=== PATIENT | male | born 2000 | race Caucasian/White ===

== ENCOUNTER 2022-01-23 09:32 | Emergency (ER) | payer BC, MEDICAID ==
[~2022-01-23] VITALS: Ht 167.6 cm; Wt 70.3 kg
[2022-01-23 09:35] VITALS: BP 114/73
--- NOTE | 2022-01-23 09:44 | NUR ---
[facility] ALS TO ER BED 10
[2022-01-23] MEDS ORDERED: NACL 0.9% 1,000 ML IV ONE (10:55)
--- NOTE | 2022-01-23 11:33 | NUR ---
yasmeen dean (mother) update given at this time,
[2022-01-23 12:48] LABS: BASOPHILS # (AUTO) 0.1 K/uL (0.00-0.22); BASOPHILS % (AUTO) 0.7 % (0.0-2.0); EOSINOPHILS # (AUTO) 0.1 K/uL (0-0.4); EOSINOPHILS % (AUTO) 0.3 % (0.0-4.0); HEMATOCRIT 37.2 % (36-52); HEMOGLOBIN 12.2 g/dL (12.0-18.0); LYMPHOCYTES % (AUTO) 10.3 % (20.5-51.1); MEAN CORPUSCULAR HEMOGLOBIN 30 pg (27-31); MEAN CORPUSCULAR HGB CONC 33 g/dL (33-37); MEAN CORPUSCULAR VOLUME 92.3 fL (80-94); MONOCYTES # (AUTO) 2.8 K/uL (0.8-1.0); MONOCYTES % (AUTO) 14.5 % (1.7-9.3); NEUTROPHILS # (AUTO) 14.2 K/uL (1.8-7.7); NEUTROPHILS % (AUTO) 74.2 % (42.2-75.2); PLATELET COUNT (AUTO) 311 K/uL (140-450); RED BLOOD CELL COUNT(AUTO) 4.03 MIL/uL (4.20-6.10); RED CELL DISTRIBUTION WIDTH 13.3 % (11.6-13.7); WHITE BLOOD COUNT (AUTO) 19.1 K/uL (4.8-10.8)
[2022-01-23 13:14] LABS: ALBUMIN 3.6 g/dL (3.4-5.0); ANION GAP 8.3 (8-16); ASPARTATE AMINOTRANSFERASE 25 U/L (15-37); CARBON DIOXIDE 30.7 mmol/L (21-32); CHLORIDE 99 mmol/L (98-107); CREATININE 1.1 mg/dL (0.6-1.3); GFR ARICAN-AMERICAN 107 mL/min (>90); GLUCOSE 78 mg/dL (74-106); SODIUM SERUM 134 mmol/L (136-145); TOTAL BILIRUBIN 0.4 mg/dL (0.0-1.0); UREA NITROGEN, BLOOD 17 mg/dL (7-18); VALPROIC ACID 90 ug/ml (50-100)
[2022-01-23] MEDS ORDERED: VANCOMYCIN 1,000 MG in DEXTROSE 5% 250 ML IV ONE (14:55)
[2022-01-23] MEDS ORDERED: PIPERACILLIN/TAZOBACTAM 3.375 GM in DEXTROSE 5% 50 ML IV ONE (14:55)
[2022-01-23] MEDS ORDERED: PIPERACILLIN/TAZOBACTAM 3.375 GM VIAL IV ONE (15:08)
[2022-01-23 15:18] LABS: PROTHROMBIN TIME 11.1 secs (10.8-13.4)
--- NOTE | 2022-01-23 15:20 | NUR ---
S/W Ingrid from [place], after clinicals were given, she stated that they would work on transferring pt. Requested for clinicals to be faxed to [phone].
[2022-01-23 15:25] LABS: FREE T4 (FREE THYROXINE) 1.05 ng/dL (0.76-1.46); THYROID STIMULATING HORMONE 3.26 uIU/mL (0.34-3.74)
[2022-01-23 15:34] LABS: APPEARANCE,URINE CLEAR (CLEAR); BILIRUBIN,URINE 2+ (NEGATIVE); BLOOD, URINE NEGATIVE (NEGATIVE); COLOR,URINE YELLOW (YELLOW); LEUKOCYTE ESTERASE ,URINE NEGATIVE (NEGATIVE); NITRITE, URINE NEGATIVE (NEGATIVE); UGLUCOSE NEGATIVE (NEGATIVE)
[2022-01-23] MEDS ORDERED: VANCOMYCIN 1,000 MG VIAL ONE (15:39)
[2022-01-23 15:57] LABS: BARBITURATE, URINE NEGATIVE ng/ml (NEG <=200); BENZODIAZEPINE, URINE NEGATIVE ng/mL (NEG <=200); CANNABINOID, URINE NEGATIVE ng/mL (NEG <=50); COCAINE, URINE NEGATIVE ng/mL (NEG <=300); OPIATE, URINE NEGATIVE ng/mL (NEG <=2000); PHENCYCLIDINE SCREEN,URINE NEGATIVE ng/mL (NEG <=25)
[2022-01-23 18:00] VITALS: BP 130/74
--- NOTE | 2022-01-23 18:52 | NUR ---
[facility] AT BEDSIDE FOR REPORT.
--- NOTE | 2022-01-23 19:16 | NUR ---
Patient to be transferred to DR LOO. Is being transferred due to REQUEST OF [facility]. Receiving facility has accepting physician and available space. ER physician has signed transfer form. Patient or responsible republican has agreed to transfer and signed form. Patient belongings inventoried and will be sent with patient. Copy of nursing notes, lab reports, EKG, Physicians Orders and X-rays to be sent with patient. Report called to [facility] at receiving facility. ambulance service has been called for transfer. ETA is .
== END 2022-01-23 19:19 ==
LOC: MED 09:32
DX: S09.90XA Unspecified injury of head, initial encounter (principal); Z20.822 Contact with and (suspected) exposure to COVID-19; F31.9 Bipolar disorder, unspecified; R40.0 Somnolence; F84.0 Autistic disorder; F25.9 Schizoaffective disorder, unspecified; X58.XXXA Exposure to other specified factors, initial encounter; Y93.89 Activity, other specified; Y92.89 Other specified places as the place of occurrence of the external cause; Y99.8 Other external cause status
CPT/HCPCS: 36415; 70450; 71045; 80053; 80178; 80305; 81003; 82140; 82550; 83605; 84439; 84443; 84484; 85025; 85610; 85730; 87040; 87426; 87804; 93005; 96361; 96365; 96366; 96367; 99285; J2543; J3370; J7030

== ENCOUNTER 2022-10-17 08:49 | Emergency (ER) | payer BC, OTHER ==
[~2022-10-17] VITALS: Ht 172.7 cm; Wt 61.7 kg
[2022-10-17 08:54] VITALS: BP 120/68; PULSE 82; RESP 18; TEMP 98.5; O2SAT 97
[2022-10-17 10:31] VITALS: BP 128/72; PULSE 75; RESP 18; TEMP 98.5; O2SAT 97
== END 2022-10-17 10:50 | disposition home or self-care (01) ==
LOC: MED 08:49
DX: R45.6 Violent behavior (principal); Z13.39 Encounter for screening examination for other mental health and behavioral disorders
CPT/HCPCS: 99283

== ENCOUNTER 2023-02-16 20:08 | Emergency (ER) | payer BC, OTHER ==
[~2023-02-16] VITALS: Ht 165.1 cm; Wt 72.6 kg
[2023-02-16 20:20] VITALS: BP 138/72; PULSE 78; RESP 16; TEMP 98.9; O2SAT 99
[2023-02-16] MEDS ORDERED: IBUPROFEN 400 MG TAB ONE (20:57)
[2023-02-16] MEDS ORDERED: IBUPROFEN 400 MG TAB PO ONE (21:00)
[2023-02-16 21:19] LABS: FLU A ANTIGEN negative (NEGATIVE); FLU B ANTIGEN NEGATIVE (NEGATIVE)
[2023-02-16 22:39] LABS: BASOPHILS # (AUTO) 0.1 K/uL (0.00-0.22); BASOPHILS % (AUTO) 0.4 % (0.0-2.0); EOSINOPHILS # (AUTO) 0.5 K/uL (0-0.4); EOSINOPHILS % (AUTO) 2.6 % (0.0-4.0); HEMATOCRIT 40.5 % (36-52); HEMOGLOBIN 13.4 g/dL (12.0-18.0); LYMPHOCYTES # (AUTO) 2.5 K/uL (2.0-11.5); LYMPHOCYTES % (AUTO) 13.2 % (20.5-51.1); MEAN CORPUSCULAR HEMOGLOBIN 31 pg (27-31); MEAN CORPUSCULAR HGB CONC 33 g/dL (33-37); MEAN CORPUSCULAR VOLUME 92.3 fL (80-94); MONOCYTES # (AUTO) 2.1 K/uL (0.8-1.0); MONOCYTES % (AUTO) 10.8 % (1.7-9.3); NEUTROPHILS # (AUTO) 13.9 K/uL (1.8-7.7); RED BLOOD CELL COUNT(AUTO) 4.39 MIL/uL (4.20-6.10); RED CELL DISTRIBUTION WIDTH 13.7 % (11.6-13.7); WHITE BLOOD COUNT (AUTO) 19.1 K/uL (4.8-10.8)
[2023-02-16 22:52] LABS: ALBUMIN 3.3 g/dL (3.4-5.0); ANION GAP 10.9 (8-16); CALCIUM 9.5 mg/dL (8.5-10.1); CARBON DIOXIDE 27.4 mmol/L (21-32); CREATININE 0.9 mg/dL (0.6-1.3); POTASSIUM 4.3 mmol/L (3.5-5.1); TOTAL BILIRUBIN 0.4 mg/dL (0.0-1.0); TOTAL PROTEIN, SERUM 9.1 g/dL (6.4-8.2)
[2023-02-16 22:53] LABS: PLATELET COUNT (AUTO) 217 K/uL (140-450)
[2023-02-16] MEDS ORDERED: NACL 0.9% 1,000 ML IV ONE (23:45)
[2023-02-17 01:20] VITALS: BP 138/72; PULSE 78; RESP 16; TEMP 98.9; O2SAT 99
[2023-02-18] MEDS ORDERED: LEVO750T75 PO ×2 (08:23→08:24)
== END 2023-02-17 01:20 | disposition home or self-care (01) ==
LOC: MED 20:08
DX: J06.9 Acute upper respiratory infection, unspecified (principal); Z20.822 Contact with and (suspected) exposure to COVID-19; E86.0 Dehydration; Z79.899 Other long term (current) drug therapy
CPT/HCPCS: 36415; 71045; 80053; 85025; 99284